=== PATIENT | female | born 1980 | race Caucasian/White ===

== ENCOUNTER 2024-08-12 16:13 | Emergency (ER) | payer OTHER ==
[~2024-08-12] VITALS: Ht 170.2 cm; Wt 96.4 kg
[2024-08-12 16:29] VITALS: TEMP 98.4
[2024-08-12] MEDS: KETOROLAC TROMETHAMINE 60 MG/2 ML VIAL IM ONE (18:13)
[2024-08-12] MEDS: HYDROmorphone HCL 2 MG/ML SYRINGE IM ONE (18:13)
[2024-08-12] MEDS: ONDANSETRON HCL 4 MG/2 ML VIAL IM ONE (18:13)
[2024-08-12 19:10] VITALS: BP 124/78; PULSE 86; RESP 20; O2SAT 100
[2024-08-12] MEDS ORDERED: HYDR-4072 PO (19:23)
[2024-08-12] MEDS ORDERED: CYCL-448 PO (19:23)
== END 2024-08-12 19:33 | disposition home or self-care (01) ==
LOC: EMS 16:13
DX: G89.29 Other chronic pain (principal); M54.50 Low back pain, unspecified; Z88.8 Allergy status to other drugs, medicaments and biological substances
CPT/HCPCS: 99284; 96372; J1171; J1885; J2405